=== PATIENT | female | born 1970 | race Caucasian/White ===

== ENCOUNTER 2018-07-11 19:59 | Emergency (ER) ==
[2018-07-11 20:12] VITALS: TEMP 98.5; BMI 31.9
[2018-07-11] MEDS ORDERED: LOPRESSOR PO STA (20:24)
[2018-07-11] MEDS ORDERED: PROCARDIA XL PO STA (20:25)
[2018-07-11] MEDS ORDERED: ATIVAN PO STA (20:32)
--- NOTE | 2018-07-11 20:48 | DI ---
EXAM: One-view chest HISTORY: Chest pain, mass, lump over anterior left shoulder near the folder of arm. TECHNIQUE: Single frontal view the chest was obtained. FINDINGS: The heart is normal size. Lungs are clear. The pulmonary vasculature appears normal. The costophrenic angles are sharp. No obvious soft tissue masses are seen. IMPRESSION: No active cardiopulmonary disease. No obvious soft tissue masses are seen. CT scan of the chest or a focused ultrasound of the chest can be obtained for further evaluation of the patient's palpable abnormality if clinically indicated.
[2018-07-11 21:49] VITALS: BP 149/97
--- NOTE | 2018-07-11 22:06 | ED.PDOC ---
General ED Provider: Dr. ANURAG BAXTER-ER Chief Complaint: Palpitations Stated Complaint: my heart is flipping around Time Seen by Physician: 20:10 Mode of Arrival: Walk-In Information Source: Patient Exam Limitations: No limitations Nursing and Triage Documentation Reviewed and Agree: Yes Does patient meet sepsis criteria?: No System Inflammatory Response Syndrome: Not Applicable Sepsis Protocol: For patient's 13 years and over: Temp is 96.8 and below OR 101 and greater Pulse >90 BPM Resp >20/minute Acutely Altered Mental Status Are patient's symptoms suggestive of a new infection, such as: -Pneumonia -Skin, Soft Tissue -Endocarditis -UTI -Bone, Joint Infection -Implantable Device -Acute Abdominal Infection -Wound Infection -Meningitis -Blood Stream Catheter Infection -Unknown Cardiovascular Complaint Exam - Palpitations Complaint/Exam Onset/Duration: several days Symptoms Are: Still present Timing: Intermittent Initial Severity: Mild Current Severity: Mild Character: Reports: Fast, Pounding Aggravating: Reports: None Alleviating: Reports: None Associated Signs and Symptoms: Denies: Lightheadedness, Dizziness, Syncope, Chest pain, Shortness of breath, Diaphoresis, Nausea, Vomiting Thyroid Exam: Normal Quality Indicator For Non-Traumatic Chest Pain/Syncope: EKG Performed Review of Systems - Review Of Systems Constitutional: Reports: No symptoms Eyes: Reports: No symptoms Ears, Nose, Mouth, Throat: Reports: No symptoms Respiratory: Reports: No symptoms Cardiac: Reports: Palpitations GI: Reports: No symptoms : Reports: No symptoms Musculoskeletal: Reports: No symptoms Skin: Reports: No symptoms Neurological: Reports: No symptoms Endocrine: Reports: No symptoms Hematologic/Lymphatic: Reports: No symptoms All Other Systems: Reviewed and Negative Past Medical History - Past Medical History Previously Healthy: Yes Endocrine: Reports: None Cardiovascular: Reports: None Respiratory: Reports: None Hematological: Reports: None Gastrointestinal: Reports: None Genitourinary: Reports: None Neuro/Psych: Reports: None Musculoskeletal: Reports: None, Joint Pain Cancer: Reports: None Last Menstrual Period: NA - Surgical History General Surgical History: Reports: Unknown - Family History Family History: Reports: Unknown - Social History Smoking Status: Current every day smoker, Heavy tobacco smoker Hx Substance Use: No Alcohol Screening: None - Immunizations Tetanus Shot up to Date: Yes Physical Exam - Physical Exam Appearance: Well-appearing, No pain distress, Well-nourished Eyes: JOI, EOMI, Conjunctiva clear ENT: Ears normal, Nose normal, Oropharynx normal Neck: Supple Respiratory: Airway patent, Breath sounds clear, Breath sounds equal, Respirations nonlabored (exam confirms 2.5cm soft tissue mass anterior chest) Cardiovascular: RRR, Pulses normal, No rub, No murmur GI/: Soft, Nontender, No masses, Bowel sounds normal, No Organomegaly Musculoskeletal: Normal strength, ROM intact, No edema, No calf tenderness Skin: Warm, Dry, Normal color Neurological: Sensation intact, Motor intact, Reflexes intact, Cranial nerves intact, Alert, Oriented Psychiatric: Affect appropriate, Mood appropriate, Anxious Interpretation - Radiology Interpretation Radiology Interpretation By: ED Physician Radiology Results: Negative Exam Interpreted: Portable CXR - EKG Interpretation Time of EKG #1: 22:05 Rate: Normal Rhythm: Sinus Ectopy: None Spencer: NL ST Segment: Normal Interpretation: nsr Critical Care Note - Critical Care Note Total Time (mins): 0 Course - Course Hematology/Chemistry: 07/11/18 20:24 07/11/18 20:24 Orders, Labs, Meds: Lab Review 07/11/18 07/11/18 07/11/18 20:24 20:24 20:24 WBC 8.09 RBC 4.96 Hgb 14.3 Hct 42.5 MCV 85.7 MCH 28.8 MCHC 33.6 RDW Coeff of Cori 13.2 Plt Count 380 Immature Gran % (Auto) 0.1 Neut % (Auto) 62.9 Lymph % (Auto) 28.1 [place] % (Auto) 6.8 Eos % (Auto) 1.4 Baso % (Auto) 0.7 Immature Gran # (Auto) 0.0 Neut # (Auto) 5.1 Lymph # (Auto) 2.3 [place] # (Auto) 0.6 Eos # (Auto) 0.1 Baso # (Auto) 0.1 D-Dimer (Manual) Sodium 136.1 L Potassium 4.00 Chloride 102.5 Carbon Dioxide 28.9 Anion Gap 8.70 BUN 14.1 Creatinine 0.97 Estimated GFR (MDRD) 62.00 BUN/Creatinine Ratio 14.53 Glucose 103.5 Calcium 9.21 Total Bilirubin 0.32 AST 31.4 ALT 21.8 Alkaline Phosphatase 67.4 Total Creatine Kinase 82.0 Troponin I < 0.012 NT-Pro-B Natriuret Pep Total Protein 7.25 Albumin 4.23 Globulin 3.02 Albumin/Globulin Ratio 1.40 TSH 1.470 Free T4 0.90 07/11/18 07/11/18 20:24 20:24 WBC RBC Hgb Hct MCV MCH MCHC RDW Coeff of Cori Plt Count Immature Gran % (Auto) Neut % (Auto) Lymph % (Auto) [place] % (Auto) Eos % (Auto) Baso % (Auto) Immature Gran # (Auto) Neut # (Auto) Lymph # (Auto) [place] # (Auto) Eos # (Auto) Baso # (Auto) D-Dimer (Manual) 361.90 Sodium Potassium Chloride Carbon Dioxide Anion Gap BUN Creatinine Estimated GFR (MDRD) BUN/Creatinine Ratio Glucose Calcium Total Bilirubin AST ALT Alkaline Phosphatase Total Creatine Kinase Troponin I NT-Pro-B Natriuret Pep 46.300 Total Protein Albumin Globulin Albumin/Globulin Ratio TSH Free T4 Orders Category Date Time Status EKG-(ED ONLY) Stat CARDIO 07/11/18 20:11 Completed Assignment Desk Editor [ED FLIGHT ENGINEER INSTRUCTOR APPLIED] .ONCE EMERGENCY 07/11/18 20:11 Active CBC W/ AUTO DIFF Stat LAB 07/11/18 20:24 Completed COMPREHENSIVE METABOLIC PANEL Stat LAB 07/11/18 20:24 Completed CREATINE KINASE Stat LAB 07/11/18 20:24 Completed D-DIMER Stat LAB 07/11/18 20:24 Completed FREE T4 (FREE THYROXINE) Stat LAB 07/11/18 20:24 Completed PRO-BNP [NT-PROBNP] Stat LAB 07/11/18 20:24 Completed TROPONIN I Stat LAB 07/11/18 20:24 Completed TSH [THYROID STIMULATING HORMONE] Stat LAB 07/11/18 20:24 Completed Lorazepam [Ativan] MEDS 07/11/18 20:32 Discontinued 0.5 mg PO ONCE STA Metoprolol Tartrate [Lopressor] MEDS 07/11/18 20:24 Discontinued 50 mg PO ONCE STA Nifedipine [Procardia Xl] MEDS 07/11/18 20:25 Discontinued 30 mg PO ONCE STA CXR [CHEST, 1V AP ONLY] Stat RADS 07/11/18 20:17 Completed Medications Discontinued Medications Generic Name Dose Route Start Last Admin Trade Name Freq PRN Reason Stop Dose Admin Lorazepam 0.5 mg 07/11/18 20:32 07/11/18 20:37 Ativan PO 07/11/18 20:33 0.5 mg ONCE STA Administration Metoprolol Tartrate 50 mg 07/11/18 20:24 07/11/18 20:38 Lopressor PO 07/11/18 20:25 50 mg ONCE STA Administration Nifedipine 30 mg 07/11/18 20:25 07/11/18 20:38 Procardia Xl PO 07/11/18 20:26 30 mg ONCE STA Administration Vital Signs: Temp Pulse Resp BP Pulse Ox 07/11/18 21:48 79 149/97 H 96 07/11/18 21:17 78 20 147/110 H 98 07/11/18 21:08 83 20 167/104 H 98 07/11/18 20:45 95 H 179/103 H 97 07/11/18 20:00 98.5 F 96 H 16 185/114 H 99 SONIDO Risk Score SONIDO Risk Score: Risk Score Odds of by 30D 0 0.1 (0.1-0.2) 1 0.3 (0.2-0.3) 2 0.4 (0.3-0.5) 3 0.7 (0.6-0.9) 4 1.2 (1.0-1.5) 5 2.2 (1.9-2.6) 6 3.0 (2.5-3.6) 7 4.8 (3.8-6.1) Departure - Departure Time of Disposition: 22:06 Disposition: HOME SELF-CARE Discharge Problem: Palpitations HTN (hypertension) Qualifiers: Hypertension type: unspecified Qualified Code(s): I10 - Essential (primary) hypertension Instructions: Heart Palpitations (ED) Condition: Good Pt referred to PMD for follow-up: Yes IPMP verified?: No Additional Instructions: procardia xl 30mg #30---lopressor 50mg #30---monitor bp---talk to dr riggs in follow up and he will help evaluate left chest wall mass (present for at least 2 weeks)--consider mri of the left chest wall Allergies/Adverse Reactions: Allergies Latex, Natural Rubber Adverse Reaction (Verified 05/04/18 13:40) Home Medications: Ambulatory Orders Aspirin 325 mg PO DAILY 07/11/18 Disposition Discussed With: Patient
== END 2018-07-11 22:16 | disposition home or self-care (01) ==
LOC: ED 19:59
DX: R00.2 Palpitations (principal); I10 Essential (primary) hypertension; R22.2 Localized swelling, mass and lump, trunk; F17.210 Nicotine dependence, cigarettes, uncomplicated
CPT/HCPCS: 36415; 80053; 82550; 83880; 84439; 84443; 84484; 85025; 85379; 93005; 93010; 99283

== ENCOUNTER 2018-10-07 18:50 | Emergency (ER) ==
[2018-10-07 18:55] VITALS: TEMP 98.1; BMI 33.3
[2018-10-07] MEDS ORDERED: TYLENOL PO STA (19:28)
[2018-10-07] MEDS ORDERED: PROCARDIA XL PO STA (19:28)
[2018-10-07] MEDS ORDERED: CATAPRES PO STA (19:28)
[2018-10-07] MEDS ORDERED: LOPRESSOR PO STA (19:28)
--- NOTE | 2018-10-07 19:37 | ED.PDOC ---
General ED Provider: Dr. ANURAG BAXTER-ER Chief Complaint: Sore Throat Stated Complaint: munira been out of my bp meds but i also have sinus congestion with sore throat and i do have a tipton Time Seen by Physician: 19:00 Mode of Arrival: Walk-In Information Source: Patient Exam Limitations: No limitations Nursing and Triage Documentation Reviewed and Agree: Yes Does patient meet sepsis criteria?: No System Inflammatory Response Syndrome: Not Applicable Sepsis Protocol: For patient's 13 years and over: Temp is 96.8 and below OR 101 and greater Pulse >90 BPM Resp >20/minute Acutely Altered Mental Status Are patient's symptoms suggestive of a new infection, such as: -Pneumonia -Skin, Soft Tissue -Endocarditis -UTI -Bone, Joint Infection -Implantable Device -Acute Abdominal Infection -Wound Infection -Meningitis -Blood Stream Catheter Infection -Unknown Respiratory Complaint Exam - Respiratory Complaint/Exam Onset/Duration: 2 weeks Symptoms Are: Still present Timing: Constant Initial Severity: Mild Current Severity: Mild Location: Nose Character: Reports: Non-productive cough Aggravating: Reports: URI Alleviating: Reports: None Associated Signs and Symptoms: Reports: Fever, URI, Nasal congestion, Sinus discomfort, Sore throat. Denies: Rapid breathing, Dyspnea, Chills, Chest pain, Pleuritic chest pain, Wheezing, Hemoptysis, Dizziness, Calf pain, Calf swelling , Edema, Hoarseness, Vomiting, Weight loss, Decreased oral intake, Increased thirst, Increased appetite, Increased urination History of Healthcare-Acquired Pneumonia: No Status Asthmaticus Risk Factors: Reports: None Home Oxygen Use: No Recent Stress Test: No Recent Echo/LV Function: No Current Antibiotic Use: No Current Asthma Medication Use: No Respiratory Distress: None Inadequate Respiratory Effort: No Dysphagia Present: No Stridor Present: No JVD Present: No Accessory Muscle Use: No Retractions: Not Present Diminished Breath Sounds: No Sinus Tenderness: Maxillary Grunting Respirations: No Kussmaul Respirations: No Differential Diagnoses: Sinusitis, URI, Other Review of Systems - Review Of Systems Constitutional: Reports: Chills, Fever Eyes: Reports: No symptoms Ears, Nose, Mouth, Throat: Reports: Nose discharge, Throat pain Respiratory: Reports: Cough Cardiac: Reports: No symptoms GI: Reports: No symptoms : Reports: No symptoms Musculoskeletal: Reports: No symptoms Skin: Reports: No symptoms Neurological: Reports: Headache Endocrine: Reports: No symptoms Hematologic/Lymphatic: Reports: No symptoms All Other Systems: Reviewed and Negative Past Medical History - Past Medical History Previously Healthy: Yes Endocrine: Reports: None Cardiovascular: Reports: None Respiratory: Reports: None Hematological: Reports: None Gastrointestinal: Reports: None Genitourinary: Reports: None Neuro/Psych: Reports: None Musculoskeletal: Reports: None, Joint Pain Cancer: Reports: None Last Menstrual Period: n/a - Surgical History General Surgical History: Reports: Unknown - Family History Family History: Reports: Unknown - Social History Smoking Status: Current every day smoker, Heavy tobacco smoker Hx Substance Use: No Alcohol Screening: None Physical Exam - Physical Exam Appearance: Well-appearing, No pain distress, Well-nourished Pain Distress: Mild Eyes: JOI, EOMI, Conjunctiva clear ENT: Rhinorrhea Neck: Supple Respiratory: Airway patent, Breath sounds clear, Breath sounds equal, Respirations nonlabored Cardiovascular: RRR, Pulses normal, No rub, No murmur GI/: Soft, Nontender, No masses, Bowel sounds normal, No Organomegaly Musculoskeletal: Normal strength, ROM intact, No edema, No calf tenderness Skin: Warm, Dry, Normal color Neurological: Sensation intact, Motor intact, Reflexes intact, Cranial nerves intact, Alert, Oriented Psychiatric: Affect appropriate, Mood appropriate Interpretation - Radiology Interpretation Radiology Interpretation By: Radiologist Radiology Results: Negative Exam Interpreted: CT Scan Re-Evaluation - Re-Evaluation Time of Re-Evaluation: 20:42 Status: Improved Vital Signs Stable: Yes (bp 130/80) Pain Level: 1 Appearance: NAD Lungs: Clear Skin: Warm and Dry Neuro: Alert and Oriented X3 CV: RRR Additional Comments: tipton resolved and bp improved Critical Care Note - Critical Care Note Total Time (mins): 0 Course - Course Orders, Labs, Meds: Lab Review 10/07/18 19:00 Influ A Molecular Assay Negative by naat Influ B Molecular Assay Negative by naat Orders Category Date Time Status FLU A/B MOLECULAR Stat LAB 10/07/18 19:00 Completed MOLECULAR GROUP A STREP Stat LAB 10/07/18 19:00 Completed Acetaminophen [Tylenol] MEDS 10/07/18 19:28 Discontinued 650 mg PO ONCE STA Clonidine HCl [Catapres] MEDS 10/07/18 19:28 Discontinued 0.1 mg PO ONCE STA Hydromorphone HCl [Dilaudid 1 mg/ml Syringe] MEDS 10/07/18 19:59 Discontinued 1 mg IM ONCE STA Metoprolol Tartrate [Lopressor] MEDS 10/07/18 19:28 Discontinued 50 mg PO ONCE STA Nifedipine [Procardia Xl] MEDS 10/07/18 19:28 Discontinued 30 mg PO ONCE STA Ondansetron HCl/Pf [Zofran 4 mg/2 ml] MEDS 10/07/18 19:59 Discontinued 4 mg IM ONCE STA CT HEAD W/O CONTRAST Stat RADS 10/07/18 19:58 Completed Medications Discontinued Medications Generic Name Dose Route Start Last Admin Trade Name Freq PRN Reason Stop Dose Admin Acetaminophen 650 mg 10/07/18 19:28 10/07/18 19:34 Tylenol PO 10/07/18 19:29 650 mg ONCE STA Administration Clonidine 0.1 mg 10/07/18 19:28 10/07/18 19:35 Catapres PO 10/07/18 19:29 0.1 mg ONCE STA Administration Hydromorphone HCl 1 mg 10/07/18 19:59 10/07/18 20:09 Dilaudid 1 Mg/Ml Syringe IM 10/07/18 20:00 1 mg ONCE STA Administration Metoprolol Tartrate 50 mg 10/07/18 19:28 10/07/18 19:35 Lopressor PO 10/07/18 19:29 50 mg ONCE STA Administration Nifedipine 30 mg 10/07/18 19:28 10/07/18 19:35 Procardia Xl PO 10/07/18 19:29 30 mg ONCE STA Administration Ondansetron HCl 4 mg 10/07/18 19:59 10/07/18 20:14 Zofran 4 Mg/2 Ml IM 10/07/18 20:00 4 mg ONCE STA Administration Vital Signs: Temp Pulse Resp BP Pulse Ox 10/07/18 20:06 153/79 H 10/07/18 19:58 159/89 H 10/07/18 19:33 162/81 H 10/07/18 18:52 98.1 F 92 H 20 189/111 H 98 Departure - Departure Time of Disposition: 19:39 Disposition: HOME SELF-CARE Discharge Problem: Sinusitis Qualifiers: Sinusitis location: other Chronicity: acute Recurrence: not specified as recurrent Qualified Code(s): J01.80 - Other acute sinusitis HTN (hypertension) Qualifiers: Hypertension type: essential hypertension Qualified Code(s): I10 - Essential ( primary) hypertension Instructions: Rhinosinusitis (ED) Condition: Good Pt referred to PMD for follow-up: Yes IPMP verified?: No Additional Instructions: zpack---resume procardia and lopressor--f/u with pcp next week Allergies/Adverse Reactions: Allergies Latex, Natural Rubber Adverse Reaction (Verified 10/07/18 18:55) Home Medications: Ambulatory Orders 1 [No Reported Medications] 10/07/18 Disposition Discussed With: Patient
[2018-10-07] MEDS ORDERED: DILAUDID 1 MG/ML SYRINGE IM STA (19:59)
[2018-10-07] MEDS ORDERED: ZOFRAN 4 MG/2 ML IM STA (19:59)
[2018-10-07 20:06] VITALS: BP 153/79
--- NOTE | 2018-10-07 20:41 | CT ---
EXAM: CT scan of the head without contrast HISTORY: Headache TECHNIQUE: Helical imaging of the head was performed without contrast. 5 mm thin axial images and c oronal and sagittal images were provided for interpretation. FINDINGS: The michelle-white interface appears normal. No acute hemorrhages are seen. There is no mass effect. The basal cisterns are patent. The calvarium appears normal. The paranasal sinuses and ma stoid air cells are clear. IMPRESSION: No acute intracranial abnormalities are seen.
== END 2018-10-07 20:47 | disposition home or self-care (01) ==
LOC: ED 18:50
DX: J01.80 Other acute sinusitis (principal); I10 Essential (primary) hypertension; F17.210 Nicotine dependence, cigarettes, uncomplicated
CPT/HCPCS: 87502; 87651; 96372; 99283